=== PATIENT | female | born 1975 | race American Indian/Alaskan Native ===

== ENCOUNTER 2020-02-25 01:29 | Emergency (ER) | payer MEDICAID ==
[2020-02-25 01:56] VITALS: BP 124/79
--- NOTE | 2020-02-25 02:02 | Emergency Department Report ---
ED Shortness of Breath HPI - General Chief Complaint: Dyspnea/Respdistress Stated Complaint: DIFF BREATHING ANXIETY Time Seen by Provider: 02/25/20 01:29 Source: patient, EMS Mode of arrival: Stretcher Limitations: Physical Limitation - History of Present Illness Initial Comments: Patient is a 44-year-old female that presents emergency room for shortness of breath. Patient states that she was brought in by EMS and once EMS placed her on oxygen her symptoms resolved. Patient states she was using 100 foot cord that was kinked and it was not delivering her oxygen. Patient states her oxygen sat was 90 and she was having difficulties breathing. Patient states when she was hooked oxygen in the ambulance and here in the hospital her symptoms have c ompletely resolved. Patient denies shortness of breath at this time. Patient denies symptoms. Patient denies shortness of breath and chest pain. Patient denies fever and chills. Patient denies cough. Patient denies recent travel. Patient denies recent international travel. Patient denies exposure to the novel coronavirus. Patient denies sick contacts. Patient denies fever and chills. Patient denies cough. Patient denies diarrhea. Patient denies coming in contact with anybody with symptoms of the novel coronavirus. Complaint: shortness of breath -: Sudden Severity: severe Pain Scale: 0 Consistency: now resolved Improves With: oxygen Worsens With: nothing Known History Of: other Associated Symptoms: denies other symptoms Treatments Prior to Arrival: oxygen - Related Data Home Oxygen Therapy: Yes Home Oxygen Amount: 4 Liters ED Review of Systems ROS: Stated complaint: DIFF BREATHING ANXIETY Other details as noted in HPI Constitutional: denies: chills, fever Eyes: denies: eye pain, eye discharge, vision change ENT: denies: ear pain, throat pain Respiratory: shortness of breath. denies: cough, wheezing Cardiovascular: denies: chest pain, palpitations Endocrine: no symptoms reported Gastrointestinal: denies: abdominal pain, nausea, diarrhea Genitourinary: denies: urgency, dysuria, discharge Musculoskeletal: denies: back pain, joint swelling, arthralgia Skin: denies: rash, lesions Neurological: denies: headache, weakness, paresthesias Psychiatric: denies: anxiety, depression Hematological/Lymphatic: denies: easy bleeding, easy bruising ED Past Medical Hx - Past Medical History Previous Medical History?: Yes Hx Hypertension: Yes Hx Arthritis: Yes Additional medical history: morbid obese - Surgical History Past Surgical History?: Yes - Social History Smoking Status: Never Smoker Substance Use Type: None ED Physical Exam - General Limitations: Physical Limitation General appearance: alert, in no apparent distress - Head Head exam: Present: atraumatic, normocephalic - Eye Eye exam: Present: normal appearance - ENT ENT exam: Present: mucous membranes moist - Neck Neck exam: Present: normal inspection - Respiratory Respiratory exam: Present: normal lung sounds bilaterally. Absent: respiratory distress, wheezes, rales - Cardiovascular Cardiovascular Exam: Present: regular rate, normal rhythm. Absent: systolic murmur, diastolic murmur, rubs, gallop - GI/Abdominal GI/Abdominal exam: Present: soft, normal bowel sounds - Extremities Exam Extremities exam: Present: normal inspection - Back Exam Back exam: Present: normal inspection - Neurological Exam Neurological exam: Present: alert, oriented X3 - Psychiatric Psychiatric exam: Present: normal affect, normal mood - Skin Skin exam: Present: warm, dry, intact, normal color. Absent: rash ED Course Vital Signs 02/25/20 02/25/20 02/25/20 01:48 01:53 01:55 Temperature 98.0 F Pulse Rate 87 Respiratory 22 18 Rate Blood Pressure 124/79 [Left] O2 Sat by Pulse 96 Oximetry - Reevaluation(s) Reevaluation #1: Patient's vital signs and oxygen saturations remained stable in the ER. Patient is currently on 4 L. Patient states she feels great. They states she is ready for discharge. Patient will be discharged home. Patient does not require further evaluation ER since her symptoms have resolved with her home dose of oxygen. Patient instructed to use a shorter oxygen tubing. I discussed all clinical findings with patient. I discussed plan of care with patient. Patient agrees with plan of care. Patient is stable for discharge. Patient will be discharged home. Patient given discharge instructions. Patient voiced understanding of discharge instructions. 02/25/20 01:59 02/25/20 02:02 ED Medical Decision Making - Medical Decision Making Patient is a 44-year-old female that presents emergency room with complaints of shortness of breath. Patient is currently on 4 L of oxygen at home however the patient's oxygen has been delivered by a very long oxygen tubing and the oxygen tubing was kinked. Patient arrived via EMS. EMS confirmed that the patient had a very long oxygen tubing and one portion of the oxygen tubing was kinked and obstructed. Patient has a O2 sat monitor at home said it was low and she was having difficulty breathing. Patient was transported via EMS and once the patient was placed on oxygen and the ambulance all her symptoms resolved. Patient was brought to the hospital for evaluation. Patient states that she did not have any symptoms. Patient denies shortness of breath. Patient was placed on oxygen here and continue to remain asymptomatic. Patient was evaluated. Patient stable for discharge. Patient discharged home. Patient does not require further emergency medical evaluation. Patient instructed to use a shorter standard nasal cannula. - Differential Diagnosis As of breath, home oxygen dependency, malfunctioning oxygen delivery system Critical care attestation.: If time is entered above; I have spent that time in minutes in the direct care of this critically ill patient, excluding procedure time. ED Disposition Clinical Impression: SOB (shortness of breath), Oxygen dependent Disposition: [id number] TO HOME OR SELFCARE Is pt being admited?: No Does the pt Need Aspirin: No Condition: Stable Instructions: Using Oxygen at Home (ED), Hypoxia (ED) Additional Instructions: Patient to follow-up with primary care in 2 to 3 days. Patient to follow-up with her general surgery physician assistant in 2 to 3 days. Patient to continue home oxygen use with a shorter oxygen tubing. Patient to rest. Patient to increase water. Patient to return to the ER if condition worsens, changes or new symptoms arise. Referrals: PRIMARY CARE, [Primary Care Provider] - 2-3 Days Time of Disposition: 02:02
== END 2020-02-25 02:54 | disposition home or self-care (01) ==
LOC: ED 01:29
DX: R06.02 Shortness of breath (principal); I10 Essential (primary) hypertension; M19.90 Unspecified osteoarthritis, unspecified site; Z99.81 Dependence on supplemental oxygen
CPT/HCPCS: 99283